=== PATIENT | male | born 1970 | race Caucasian/White ===

== ENCOUNTER 2020-11-16 04:48 | Day surgery (SDC) | payer BC ==
[2020-11-14 12:43] VITALS: BMI 30.5
[2020-11-16] MEDS ORDERED: MIDAZOLAM HCL 2 MG/2 ML SINGLE DOSE VIAL ONE (07:40)
[2020-11-16 08:35] VITALS: TEMP 98
[2020-11-16 09:39] VITALS: BP 129/80; PULSE 77
== END 2020-11-16 09:40 | disposition home or self-care (01) ==
LOC: JASU-ENDO 04:48
PROVIDERS: ATTEND Internal Medicine Gastroenterology
PROC: 0DJD8ZZ Inspection of Lower Intestinal Tract, Via Natural or Artificial Opening Endoscopic (ICD-10-PCS; principal; 2020-11-16 08:00)
DX: Z12.11 Encounter for screening for malignant neoplasm of colon (principal); K57.30 Diverticulosis of large intestine without perforation or abscess without bleeding; K92.1 Melena; K64.8 Other hemorrhoids; K64.4 Residual hemorrhoidal skin tags